=== PATIENT | female | born 1985 | race Caucasian/White ===

== ENCOUNTER 2021-10-04 12:22 | Outpatient (CLI) | payer OTHER | END 2021-10-04 12:23 | disposition home or self-care (01) | LOC: CSHLAB 12:22 | PROVIDERS: ATTEND Obstetrics & Gynecology | DX: Z20.822 Contact with and (suspected) exposure to COVID-19 (principal) | CPT/HCPCS: 87811 ==

== ENCOUNTER 2021-10-08 19:15 | Inpatient (IN) | payer OTHER ==
[2021-10-09] MEDS ORDERED: hydrALAZINE 20 MG/ML VIAL SLOW IVP PRN ×2 (01:51→18:01)
[2021-10-09] MEDS ORDERED: Ondansetron PF 4 MG/2 ML Vial IVP PRN ×2 (01:51→10:29)
[2021-10-09] MEDS ORDERED: HYDROcodone/Acetaminophen 5/325 mg Tablet PO PRN ×2 (01:51)
[2021-10-09] MEDS ORDERED: Misoprostol 200 MCG TAB PR PRN (01:51)
[2021-10-09] MEDS ORDERED: Promethazine HCl 25 MG/ML VIAL IM PRN ×2 (01:51→10:29)
[2021-10-09] MEDS ORDERED: Acetaminophen 500 MG TAB PO PRN (01:51)
[2021-10-09] MEDS ORDERED: Diphenoxylate HCl/Atropine Tablet PO PRN ×2 (01:51)
[2021-10-09] MEDS ORDERED: Lidocaine 1% (PF) 30 ML VIAL SC PRN (01:51)
[2021-10-09] MEDS ORDERED: Carboprost 250 MCG/ML AMP IM PRN (01:51)
[2021-10-09 01:58] VITALS: BMI 34.2
[2021-10-09] MEDS ORDERED: NS w/ Oxytocin 30 units 500 ML IV SCH ×2 (02:00)
[2021-10-09 02:49] LABS: Hemoglobin 9.5 g/dL (12.0-15.5); Mean Corpuscular HGB CONC 33.6 g/dL (32.0-36.0); Mean Corpuscular Hemoglobin 28.6 pg (27.0-33.0); Mean Corpuscular Volume 85.2 fl (81.6-98.3); Mean Platelet Volume 10.1 fl (7.4-10.4); Platelet Count 326 10x3/uL (150-450); RBC Distribution Width 14.6 % (11.5-14.5); Red Blood Cell (RBC) Count 3.32 10x6/uL (3.90-5.03); White Blood Cell (WBC) Count 13.2 10x3/uL (3.5-10.5)
[2021-10-09 03:07] LABS: ALT (SGPT) 17 U/L (8-55); AST (SGOT) 27 U/L (5-34); Albumin 3.5 g/dL (3.5-5.0); Alkaline Phosphatase 141 U/L (40-110); Anion Gap 16 mmol/L (10-20); BUN (Urea Nitrogen) 10 mg/dL (7.0-18.7); Bilirubin, Total 0.2 mg/dL (0.2-1.2); Calc. Creatinine Clearance 145 mL/min (70-130); Calcium 9.3 mg/dL (7.8-10.44); Carbon Dioxide 19 mmol/L (22-29); Chloride 106 mmol/L (98-107); Estimated GFR 116; Globulin 2.7 g/dL (2.4-3.5); Glucose 89 mg/dL (70-105); Protein, Total 6.2 g/dL (6.0-8.3); Sodium 137 mmol/L (136-145)
[2021-10-09 03:24] LABS: Syphilis Antibody Nonreactive (Nonreactive); Syphilis Antibody Index 0.06 S/CO (<1.00 Non-Reactive)
[2021-10-09 03:27] LABS: Hep B Surf Ag Non-Reactive S/CO (NonReactive)
[2021-10-09 03:45] LABS: HBSAg Index 0.22 S/CO (0-0.99)
[2021-10-09] MEDS: Misoprostol 100 MCG TAB VAG SCH (03:47)
[2021-10-09] MEDS ORDERED: Fentanyl 2 mcg/Bup 0.1% Cadd 100 ML ONE (08:22)
[2021-10-09] MEDS: Lactated Ringer's 1,000 ML IV SCH (09:16)
[2021-10-09] MEDS ORDERED: Lactated Ringer's 500 ML IV PRN (10:29)
[2021-10-09] MEDS ORDERED: Naloxone HCl 0.4 mg/ml Vial IVP PRN ×2 (10:29)
[2021-10-09] MEDS ORDERED: diphenhydrAMINE 50 MG/ML VIAL IVP PRN (10:29)
[2021-10-09] MEDS ORDERED: Acetaminophen 325 MG TAB PO PRN (10:29)
[2021-10-09] MEDS ORDERED: Moisturizing Cream (Eucerin) 113 GM JAR TOP PRN (10:29)
[2021-10-09] MEDS ORDERED: ePHEDrine Sulfate 50 MG/10 ML VIAL SLOW IVP PRN (10:29)
[2021-10-09] MEDS ORDERED: Fentanyl 2 mcg/Bupivacaine 0.1% Cassette 100 ML EPIDURAL SCH (10:30)
[2021-10-09] MEDS ORDERED: Communication Order-Pharmacy FS SCH (10:30)
[2021-10-09] MEDS ORDERED: Milk Of Magnesia 30 ML UDCUP PO PRN (18:01)
[2021-10-09] MEDS ORDERED: Benzocaine-Menthol 82.5 ML CAN TOP PRN (18:01)
[2021-10-09] MEDS ORDERED: Boostrix 0.5 ML (Tdap) VIAL IM ONE (18:01)
[2021-10-09] MEDS ORDERED: Lanolin Ointment 7 GM TUBE TOP PRN (18:01)
[2021-10-09] MEDS ORDERED: Preparation H Ointment 28 GM TUBE PR PRN (18:01)
[2021-10-09] MEDS ORDERED: Bisacodyl 10 MG SUPP PR PRN (18:01)
[2021-10-09] MEDS: Docusate 100 MG CAP PO SCH (21:26)
[2021-10-09] MEDS ORDERED: traMADol HCl 50 MG TAB PO PRN ×2 (21:26)
[2021-10-09] MEDS: Labetalol HCl 100 MG TAB PO SCH (21:26)
[2021-10-09] MEDS: Ibuprofen 800 MG TAB PO SCH (21:26)
[2021-10-10] MEDS: Ibuprofen 800 MG TAB PO SCH ×3 (05:24→22:09)
[2021-10-10] MEDS: Docusate 100 MG CAP PO SCH ×2 (08:13→22:09)
[2021-10-10] MEDS: Prenatal Vitamin 1 TAB PO SCH (08:13)
[2021-10-10] MEDS: Labetalol HCl 100 MG TAB PO SCH ×2 (08:13→22:09)
[2021-10-11] MEDS: Ibuprofen 800 MG TAB PO SCH (05:56)
[2021-10-11 07:53] VITALS: BP 129/70; TEMP 98.5
[2021-10-11] MEDS: Lactated Ringer's 1,000 ML IV SCH ×2 (07:58→07:59)
[2021-10-11] MEDS: Misoprostol 100 MCG TAB VAG SCH (07:58)
[2021-10-11] MEDS: Labetalol HCl 100 MG TAB PO SCH (08:17)
[2021-10-11] MEDS: Prenatal Vitamin 1 TAB PO SCH (08:17)
[2021-10-11] MEDS: Docusate 100 MG CAP PO SCH (08:17)
== END 2021-10-11 14:25 | disposition home or self-care (01) | DRG 807 ==
LOC: CSHLD 10-09 01:24 → CSHPP 10-09 19:55
PROVIDERS: ADMIT Obstetrics & Gynecology; ATTEND Obstetrics & Gynecology
PROC: 10E0XZZ Delivery of Products of Conception, External Approach (ICD-10-PCS; principal; 2021-10-09)
PROC: 0HQ9XZZ Repair Perineum Skin, External Approach (ICD-10-PCS; 2021-10-09)
PROC: 10907ZC Drainage of Amniotic Fluid, Therapeutic from Products of Conception, Via Natural or Artificial Opening (ICD-10-PCS; 2021-10-09)
DX: O10.92 Unspecified pre-existing hypertension complicating childbirth (principal); Z37.0 Single live birth; Z3A.39 39 weeks gestation of pregnancy; O70.0 First degree perineal laceration during delivery; Z79.899 Other long term (current) drug therapy
CPT/HCPCS: 36415; 51702; 80053; 85027; 86780; 86850; 86900; 86901; 87340; J7120